=== PATIENT | male | born 1970 | race Caucasian/White ===

== ENCOUNTER 2022-05-28 14:50 | Outpatient (CLI) | payer OTHER, SELFPAY ==
[2022-05-28 21:32] LABS: Chloride* 100 mmol/L (96-114)
[2022-05-28 21:33] LABS: Potassium* 4.8 mmol/L (3.6-5.1); Sodium* 138 mmol/L (135-149)
[2022-05-28 21:36] LABS: Blood Urea Nitrogen* 18 mg/dL (7-30); Carbon Dioxide* 27 mmol/L (20-32); Cholesterol* 228 mg/dL (90-199); Creatinine* 1.1 mg/dL (0.5-1.5); Estimated Glomerular Filt Rate 82 ml/min; Glucose* 104 mg/dL (60-115); Triglycerides* 143 mg/dL (40-149)
[2022-05-28 21:37] LABS: Calcium* 9.9 mg/dL (8.4-10.6); HDL Cholesterol* 36 mg/dL (>=40); LDL Cholesterol Calculated 163 mg/dL (<100)
[2022-05-28 22:02] LABS: PSA Screen* 2.58 ng/mL (0.10-4.00)
[2022-05-29 15:15] LABS: Alanine Aminotransferase* 48 U/L (4-50)
== END 2022-05-28 14:51 | disposition home or self-care (01) ==
PROVIDERS: PCP Family Medicine; Visit Provider Family Medicine
DX: Z00.00 Encounter for general adult medical examination without abnormal findings (principal); G47.30 Sleep apnea, unspecified; F41.9 Anxiety disorder, unspecified; Z12.5 Encounter for screening for malignant neoplasm of prostate; Z13.6 Encounter for screening for cardiovascular disorders
CPT/HCPCS: 80048; 80061; 84153; 84460

== ENCOUNTER 2022-11-08 11:23 | Emergency (ER) | payer BC, SELFPAY ==
[2022-11-08 11:30] VITALS: BP 144/79; PULSE 103; RESP 18; TEMP 36.9; O2SAT 93; BMI 33.1
--- NOTE | 2022-11-08 11:34 | ED_ITS ---
HPI - Nausea/Vomiting/Diarrhea General Time Seen by Provider: 11:34 Date Seen: 11/08/22 Chief complaint: Nausea/Vomiting Stated complaint: Possible food poisoning vomiting diarrhea Time Seen by Provider: 11/08/22 11:29 Source: patient and RN notes reviewed Mode of arrival: ambulatory Limitations: no limitations History of Present Illness HPI Narrative: Patient is a 52-year-old male that woke at 2:00 a.m. with acute nausea vomiting and diarrhea. He and his did go out to eat last night. He is sicker than she is. Has abdominal cramping before stooling or vomiting but overall no abdominal pain. He thinks he may have felt a little warm and sweaty last night, possible fever but temperature not checked. He has not been able to keep anything down, take anything in since this started. He is not sure if it is food poisoning. What he ate last night, he gave his a little bit of. He also understands it could be a contagious illness that he picked up like gastroenteritis. He states he has had norovirus before and this feels like norovirus. No blood in the vomitus or stool/diarrhea. MD elicited complaint: nausea, vomiting and diarrhea Related Data Previous Rx's Medication Instructions Recorded rosuvastatin 10 mg tablet 10 mg PO QDAY #90 tabs 06/08/22 ondansetron 4 mg disintegrating 4 mg PO Q8H PRN nausea and 11/08/22 tablet vomiting #20 tabs Allergies Allergy/AdvReac Type Severity Reaction Status Date / Time No Known Drug Allergies Allergy Verified 05/28/22 14:30 Review of Systems Status of ROS: Reports: 6 or more systems reviewed and unremarkable except as noted in History and below [facility] Medical History (Updated 11/08/22 @ 12:59 by Angelika Fritz MD) History of pilonidal cyst ?Z87.2 - Personal history of diseases of the skin and subcutaneous tissue (ICD-10) Pilonidal cyst ?L05.91 - Pilonidal cyst without abscess (ICD-10) Family History (Updated 05/26/22 @ 15:23 by Niki Luo) Father Alcohol dependence Aortic aneurysm CVD (cardiovascular disease) Brother Alcohol dependence Maternal Grandfather CVD (cardiovascular disease) Maternal Grandfather CVD (cardiovascular disease) Social History (Updated 05/26/22 @ 15:23 by Niki Luo) Narrative: exercises regularly, had 4 children, , nonsmoker Smoking Status: Never smoker Exam Const: Vital Signs, click to edit/add: Vital Signs - 24 hr 11/08/22 11:30 Temperature 98.4 F Pulse Rate [Right Pulse Oximeter] 103 H Respiratory Rate 18 Blood Pressure [Ri ght Upper Arm] 144/79 H Pulse Oximetry 93 Oxygen Delivery Me thod Room Air Patient lying on the ER cart, holding an emesis bag. Documenting provider has reviewed patient's vital signs: yes Common normals: no apparent distress, average body habitus, oriented x3, no limitations, healthy appearing and alert General appearance: cooperative, comfortable, well kempt and well developed HENMT: Common normals: normocephalic, head/scalp atraumatic and hearing grossly normal bilaterally Head and scalp: normocephalic and atraumatic Other: Tongue and oral mucosa are dry. Lips look normal. No oral lesions noted. Eye: Common normals: PERRL, EOMs intact bilaterally, conjunctivae normal and no scleral icterus Conjunctiva: conjunctiva(e) normal Pupil: PERRL Neck & C-Spine: Common normals: full ROM, no lymphadenopathy and supple Resp: Common normals: normal respiratory effort, no retractions, no use of accessory muscles and clear to auscultation bilaterally Auscultation: clear to auscultation bilaterally Cardio: Common normals: regular rhythm, S1 normal heart sound, S2 normal heart sound, no gallops, no clicks and no murmurs Rate: tachycardic Rhythm: regular rhythm Heart sounds: S1 normal and S2 normal GI: Common normals: soft to palpation, non-tender, no hepatosplenomegaly and no masses Inspection: normal to inspection Auscultation: hypoactive bowel sounds Palpation: soft and no hepatosplenomegaly Neuro: Common normals: oriented x3 Sensorium/orientation: alert Psych: Appearance: well kempt Course Course Hospital Course: Patient and I reviewed differential diagnosis which does include food poisoning versus a viral gastroenteritis. We reviewed that most food poisoning is self- limited, do not treat at the onset of it. Obviously if this is a gastroenteritis such as a norovirus illness, he can anticipate a more prolonged illness. Food poisoning usually settles down within hours of the onset, typically does not have a lengthy illness. We will initiate IV fluids, IV Zofran. I will send him in a prescription for Zofran at home to help him try to get fluids in through this. We will do basic blood work. Would not recommend stool studies at this point. Reevaluation(s) Reevaluation #1: Patient is feeling better, declines a 2 L of IV fluids. We will discharge to home for ongoing conservative management. His had eaten 1 of his shrimp last night, she had just had a little cramping this morning. We discussed the difference between food poisoning and viral gastroenteritis. She was wondering if there is any waited test as they have a son at home with ulcerative colitis. Reviewed with her that our testing send out, we would maybe known in 5-7 days if we collected stool. Thus, I think following good hygiene, maybe having separate bathrooms at home through this might be beneficial. Time: 12:54 Vital Signs Vital signs: Initial Vital Signs Temperature 98.4 F 11/08/22 11:30 Temperature Source Temporal Artery Scan 11/08/22 11:30 Pulse Rate 103 H 11/08/22 11:30 Respiratory Rate 18 11/08/22 11:30 Blood Pressure 144/79 H 11/08/22 11:30 Blood Pressure Mean 100 11/08/22 11:30 Blood Pressure Position Sitting 11/08/22 11:30 Pulse Oximetry 93 11/08/22 11:30 Oxygen Delivery Method Room Air 11/08/22 11:30 Vital Signs Temperature 98.4 F 11/08/22 11:30 Pulse Rate 103 H 11/08/22 11:30 Respiratory Rate 18 11/08/22 11:30 Blood Pressure 144/79 H 11/08/22 11:30 Pulse Oximetry 93 11/08/22 11:30 Oxygen Delivery Method Room Air 11/08/22 11:30 Temperature 98.4 F 11/08/22 11:30 Pulse Rate 103 H 11/08/22 11:30 Respiratory Rate 18 11/08/22 11:30 Blood Pressure 144/79 H 11/08/22 11:30 Pulse Oximetry 93 11/08/22 11:30 Oxygen Delivery Method Room Air 11/08/22 11:30 MDM - Nausea/Vomiting/Diarrhea Lab Data Attestation: I reviewed the patient's lab results. Lab results narrative: Did review with patient that his glucose was elevated. This certainly could be a stress response but would warrant follow-up. His wanted to know if we would do hemoglobin A1c. Reviewed with her that I will defer that to the clinic. He is going to discharge, it is not imperative for her treatment at this time and is not something I am going to follow treatment for. Thus, recommend recheck within the next month in clinic. Labs: Lab Results 11/08/22 Range/Units 11:57 WBC 10.57 (4.50-11.00) K/uL RBC 5.00 (4.30-5.90) m/uL Hgb 15.8 (13.5-17.5) gm/dL Hct 46.4 (37.0-53.0) % MCV 93 (80-100) fL MCH 32 (26-34) pg MCHC 34 (32-36) gm/dL RDW Coeff of Wes 11.8 (11.5-15.5) % Plt Count 255 (140-440) K/uL Neut % (Auto) 91.5 H (42.0-72.0) % Lymph % (Auto) 4.2 L (20-44) % Harlan % (Auto) 3.9 (0.0-11.0) % Eos % (Auto) 0.1 (0.0-7.0) % Baso % (Auto) 0.1 (0.0-3.0) % Neut # (Auto) 9.70 H (1.7-7.0) K/uL Lymph # (Auto) 0.40 L (0.90-2.90) K/uL Harlan # (Auto) 0.40 (0.00-0.90) K/UL Eos # (Auto) 0.01 (0.00-0.50) K/uL Baso # (Auto) 0.01 (0.00-0.30) K/uL Sodium 138 (135-149) mmol/L Potassium 4.0 (3.6-5.1) mmol/L Chloride 106 (96-114) mmol/L Carbon Dioxide 23 (20-32) mmol/L BUN 21 (7-30) mg/dL Creatinine 1.1 (0.5-1.5) mg/dL Estimated Creat Clear 96.02 Estimated GFR 82 ml/min Glucose 144 H (60-115) mg/dL Lactate 1.7 (0.5-1.9) mmol/L Calcium 8.5 (8.4-10.6) mg/dL Discharge Plan Discharge Clinical Impression: Nausea, vomiting and diarrhea Patient Disposition: Home, Self-Care Condition: Improved Instructions: Acute Nausea and Vomiting (ED), Acute Diarrhea (ED), Nutrition Tips for Relief of Diarrhea (ED) Additional Instructions: Take Zofran as needed for any return of nausea vomiting. This should allow you to support clear liquids to stay hydrated. Follow the handout for nutrition tips on relief of diarrhea, may advance her diet as your nausea and vomiting improves. If you notice a blood in the stool, are not improving in the next 24- 48 hours, feel you are worsening at any point, do recommend re-evaluation. Do recommend recheck in clinic within the next month for recheck of a fasting glucose and possibly a hemoglobin A1c. Glucose was mildly elevated here today at 144. Prescriptions: New ondansetron 4 mg tablet,disintegrating 4 mg PO Q8H PRN (Reason: nausea and vomiting) Qty: 20 0RF No Action rosuvastatin 10 mg tablet 10 mg PO QDAY Qty: 90 1RF Follow Up/Referrals: Bobby Sutherland MD [Primary Care Provider] - Stand Alone Forms: [employer] Info Instructions Critical Care Time Critical Care Time Critical Care Time: No
[2022-11-08] MEDS: 0.9 % SODIUM CHLORIDE 1000 ml 1,000 ML IV (11:58)
[2022-11-08] MEDS: ONDANSETRON 2 MG/ML inj 4 MG IVP (11:58)
[2022-11-08 12:01] LABS: Lactate* 1.7 mmol/L (0.5-1.9)
[2022-11-08 12:03] LABS: Basophils Absolute Auto 0.01 K/uL (0.00-0.30); Basophils Percent Auto 0.1 % (0.0-3.0); Eosinophils Absolute Auto 0.01 K/uL (0.00-0.50); Eosinophils Percent Auto 0.1 % (0.0-7.0); Hematocrit 46.4 % (37.0-53.0); Hemoglobin* 15.8 gm/dL (13.5-17.5); Immature Granulocytes Abs Auto 0.02 K/uL (0.00-0.30); Immature Granulocytes Pct Auto 0.2 %; Lymphocytes Percent Auto 4.2 % (20-44); Mean Corpuscular HGB Conc 34 gm/dL (32-36); Mean Corpuscular Hemoglobin 32 pg (26-34); Mean Corpuscular Volume 93 fL (80-100); Monocytes Percent Auto 3.9 % (0.0-11.0); Neutrophils Percent Auto 91.5 % (42.0-72.0); Platelet Count* 255 K/uL (140-440); RDW Coefficient of Variation % 11.8 % (11.5-15.5); Slide Review Reflex No; White Blood Count* 10.57 K/uL (4.50-11.00)
[2022-11-08 12:17] LABS: Chloride* 106 mmol/L (96-114); Sodium* 138 mmol/L (135-149)
--- OUTSIDE RECORDS SUMMARY | 2022-11-08 12:17 | XMS_ITS | Continuity of Care Document ---
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 Operator Name Role Phone May Serrano CRNA Unavailable Unavai lable Allergies, Adverse Reactions, Alerts Substance Reaction Status Criticality No Known Allergies Active No Inform ation Medications Medication Instructions Dosage Effective Dates (start - stop) Status Comments rosuvastatin 10 mg tablet take 1 tablet by oral route every day 10 MG - Active Procedures Procedure Date Colonoscopy Flex; W/remov Les- Level Iv-surg Path Gross/micro Advance Directives Directive Yes / No Effective Date File Name No Information Encounters Encounter Description Practice Location Reason(s) For Visit Diagnoses Date Provider Providers Copied on Encounter [facility], [address] [address], [place], [place], [id number], [place] tel:[phone] [facility] No Information 3 Maggie Olvera. [address] [place] [address], [facility] [address], [place], [place], [address], [place]. tel:[phone] Referring Provider: Sha Avery MD S, [address] [facility] [address], [place], [address] . tel:[phone] [facility], [address] [address], [place], [place], [address], [place] tel:[phone] [facility] GI Symptoms or Concerns (chief complaint) Colorectal polypsDiverticulo sis of colon without diverticulitisEnc ounter for screening for malignant neoplasm of colonBenign neoplasm of ascending colonBenign neoplasm of sigmoid colonBenign neoplasm of rectumBenign neoplasm of sigmoid colonBenign neoplasm of ascending colon 3 Bennie Dalton. [address] [facility], [place] [address], [place], [place], [id number], [place]. tel:[phone] Bobby Sutherland MD. tel:[phone] erring Provider: Referral Self. [facility], [address] [address], [place], [place], [address], [place] tel:[phone] [facility] No Information 2 Ulises Ibarra. [address] [facility] [address], [place], [address], [place]. tel:[phone] Family History Family Member Type Diagnosis Age At Onset Son Problem (finding) Family history of Ulcer ative colitis Immunizations Vaccine Date Status Comments Seasonal, quadrivalent, recombinant, injectable influenza vaccine, preservative free administered Note: [facility] bi-direct ional interface ; Source: Other Registry SARS-COV-2 (COVID-19) vaccin e, mRNA, spike protein, LNP, preservative free, 30 mcg/0.3mL dose administered Note: [facility] bi-direct ional interface ; Source: Other Registry Afluria Qd administered Note: [facility] bi-directional interface ; Source: Other Registry SARS-COV-2 (COVID-19) vaccin e, vector non-replicating, recombinant spike protein-Ad26, preservative free, 0.5 mL administered Note: [facility] bi- directional interface ; Source: Other Registry Afluria Qd administered Note: [facility] bi-directional interface ; Source: Other Registry Seasonal, quadrivalent, recombinant, injectable influenza vaccine, preservative free administered Note: [facility] bi-direct ional interface ; Source: Other Registry Afluria Qd administered Note: [facility] bi-directional interface ; Source: Other Registry Influenza, seasonal, injectable administe red Note: [facility] bi- directional interface ; Source: Other Registry tetanus toxoid, reduced diphtheria toxoid, and acellular pertussis vaccine, adsorbed administered Note: [facility] b i-directional interface ; Source: Other Registry measles, mumps and rubella v irus vaccine administered Note: [facility] bi-direct ional interface ; Source: Other Registry measles virus vaccine administered Note: [facility] bi-directional interface ; Source: Other Registry Payers Payer name Insurance type Covered alliance party ID Authoriza tion(s) No Information Social History Type Description Quantity Date Captured Comments Sex Male Smoking Status No Information Chief Complaint And Reason For Visit No Information Reason For Referral Reason For Referral No Information Plan Of Treatment Date Type Action Status No Information History Of Present Illness Encounter Date Complaint History Of Prese nt Illness GI Symptoms or Concerns Functional Status Date Functional Assessmen t No Information Instructions Date Instruction Additional Infor mara Colon Cancer Prevention Related to Colorectal polyps Diverticulosis/Diverticulitis Re lated to Colorectal polyps Colon Polyps Related to Color ectal polyps High Fiber Diet Related to Color ectal polyps Assessments Type Assessment Date No Information Patient Care Teams Name Effective Dates (start - stop) Status Members No Information
--- OUTSIDE RECORDS SUMMARY | 2022-11-08 12:17 | XMS_ITS | Continuity of Care Document ---
Author Name Unknown Organization [facility] Address [address] [address] [place] [address] Phone Care Team Providers Care Size Worker Name Role Phone May Serrano CRNA Unavailable [...] Diagnoses Date Provider Providers Copied on Encounter [facility], [address] [address], [place], [place], [address], [place] tel:[phone] [facility] No Information 3 Maggie Olvera. [address] [place] [address], [facility] [address], [place], [place], [id number], [place]. tel:[phone] Referring Provider: Sha Avery MD S, [address] [facility] [address], [place], [address] . tel:[phone] [facility], [address] [address], [place], [place], [address], [place] tel:[phone] [facility] GI Symptoms or Concerns (chief complaint) Colorectal polypsDiverticulo sis of colon without diverticulitisEnc ounter for screening for malignant neoplasm of colonBenign neoplasm of ascending colonBenign neoplasm of sigmoid colonBenign neoplasm of rectumBenign neoplasm of sigmoid colonBenign neoplasm of ascending colon 3 Bennie Dalton. [address] [facility], [place] [address], [place], [place], [address], [place]. tel:[phone] Bobby Sutherland MD. tel:[phone] erring Provider: Referral Self. [facility], [address] [address], [place], [place], [address], [place] tel:[phone] [facility] No Information 2 Ulises Ibarra. [address] [facility] [address], [place], [address], [place]. tel:[phone] Family History Family Member Type Diagnosis Age [...] Registry Influenza, seasonal, injectable administe red Note: [facility] bi- directional interface ; Source: Other Registry tetanus toxoid, reduced diphtheria toxoid, and acellular pertussis vaccine, adsorbed administered Note: [facility] b i-directional interface ; Source: Other Registry measles, mumps and rubella v irus vaccine administered Note: [facility] bi-direct ional interface ; Source: Other Registry measles virus vaccine administered Note: [facility] bi-directional interface ; Source: Other Registry Payers Payer name Insurance type Covered green party ID Authoriza tion(s) No Information Social [...]
[2022-11-08 12:20] LABS: Blood Urea Nitrogen* 21 mg/dL (7-30); Carbon Dioxide* 23 mmol/L (20-32); Creatinine* 1.1 mg/dL (0.5-1.5); Est. Creatinine Clearance* 96.02; Estimated Glomerular Filt Rate 82 ml/min
[2022-11-08 12:21] LABS: Calcium* 8.5 mg/dL (8.4-10.6); Glucose* 144 mg/dL (60-115)
--- NOTE | 2022-11-08 13:21 | ED.NURSE ---
Zofran was sent to [facility] in [place] ([facility]) and cancelled at [facility] pharmacy per patient's request.
== END 2022-11-08 13:20 | disposition home or self-care (01) ==
PROVIDERS: Emergency Provider Family Medicine; PCP Family Medicine
DX: R11.2 Nausea with vomiting, unspecified (principal); R19.7 Diarrhea, unspecified
CPT/HCPCS: 36415; 80048; 83605; 85025; 96374; 99284; J2405; J7030

== ENCOUNTER 2024-01-24 19:20 | Outpatient (CLI) | payer BC, SELFPAY ==
--- NOTE | 2024-02-02 12:02 | W.PM.SLEEP ---
Sleep Study Details Details Interpreting Provider: Current Date of Sleep Study: 01/24/24 Sleep Study Details: STUDY TYPE:? Home unattended ? BMI:? 32.5 ORDERING PROVIDER:? Becki INDICATION:? Concerns about sleep apnea ? SLEEP SUMMARY:? 430 minutes monitored RESPIRATORY SUMMARY:? AHI 3.2, low oxygen 81, 2.4% of study oxygen less than 90%, snoring 78% PERIODIC LIMB MOVEMENTS OF SLEEP:? Not recorded CARDIAC:? Range 52-99, mean 67.3 beats per minute IMPRESSION:? Primary snoring RECOMMENDATION: If sleep disorder strongly suspected recommend in-lab study.
== END 2024-01-24 19:21 | disposition home or self-care (01) ==
LOC: SLEEP 19:21
PROVIDERS: PCP Family Medicine; Visit Provider Otolaryngology
DX: R06.83 Snoring (principal)
CPT/HCPCS: 95806

== ENCOUNTER 2024-03-03 09:38 | Outpatient (CLI) | payer BC, SELFPAY ==
--- OUTSIDE RECORDS SUMMARY | 2024-03-06 15:04 | XMS_ITS | Clinical Summary ---
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 Name Role Phone No Ref-Primary, Physician Primary Care Provider Allergies No known active allergies Medications No known medications Immunizations Name Administration Dates Next Due Influenza Vaccine 18-64 (Flublok) 09/21/2019 Influenza Vaccine >6 months,quad, PF 05/30/2020 Measles 03/28/1990 TDAP (Adacel,Boostrix) 04/17/2009 Td (Adult), Adsorbed 09/21/2019 Social History Tobacco Use Types Packs/Day Years Used Date Smoking Tobacco: Never Smokeless Tobacco: Never Adolescent Education Answer Date Record ed Getting School Help Needed Not on file 05/23 Sex and Gender Information Value Date Recorded Sex Assigned at Not on file Gender Identity Not on file Sexual Orientation Not on file Last Filed Vital Signs Vital Sign Reading Time Taken Comments Blood Pressure 133/78 06/24/2023 1:18 PM DIALYSIS TECH Pulse 85 06/24/2023 1:18 PM DIALYSIS TECH Temperature 37.6 ??C (99.6 ??F) 07/26/2018 7:51 PM CS T Respiratory Rate 16 07/26/2018 7:51 PM DIALYSIS TECH Oxygen Saturation 97% 06/24/2023 1:18 PM DIALYSIS TECH Inhaled Oxygen Concentration - - Weight 117.9 kg (260 lb) 07/26/2018 7:51 PM DIALYSIS TECH Height - - Body Mass Index - - Plan of Treatment Health Maintenance Due Date Last Done Comments ADVANCE CARE PLANNING 1972 ANNUAL REVIEW OF HM ORDERS 1972 CT COLONOGRAPHY 1972 FIT 1972 FLEX SIG 1972 GLUCOSE 1972 sDNA (Cologuard) 1972 HIV SCREENING 02/06/1987 HEPATITIS C SCREENING 02/06/1990 HEPATITIS B IMMUNIZATION (1 of 3 - 19+ 3-dose series) 02/06/1991 LIPID 2012 YEARLY PREVENTIVE VISIT 09/21/2020 09/21/2019 ZOSTER IMMUNIZATION (1 of 2) 02/06/2022 COVID-19 Vaccine (3 - season) 2023 06/06/2021, 11/21/2020 PHQ-2 (once per calendar year) 2023 INFLUENZA VACCINE (#1) 2024 2, 06/06/2021, 05/30/2020, Additional history exists DTAP/TDAP/TD IMMUNIZATION (3 - Td or Tdap) 09/21/2029 09/21/2019, 04/17/2009, 11/21/2004 COLONOSCOPY 09/02/2032 09/02/2022 COLORECTAL CANCER SCREENING 09/02/2032 HPV IMMUNIZATION Aged Out No longer e ligible based on patient's age to complete this topic IPV IMMUNIZATION Aged Out No longer e ligible based on patient's age to complete this topic MENINGITIS IMMUNIZATION Aged Out No l onger eligible based on patient's age to complete this topic Pneumococcal Vaccine: Pediatrics (0 to 5 Years) and At-Risk Patients (6 to 64 Years) Aged Out No longer eligible based on patient's age to complete this topic RSV MONOCLONAL ANTIBODY Aged Out No l onger eligible based on patient's age to complete this topic Care Teams Pipe Manufacture Supervisor Relationship Specialty Start Date End Date No Ref-Primary, Physician PCP - General 07/26/18
--- OUTSIDE RECORDS SUMMARY | 2024-03-06 15:04 | XMS_ITS | Referral Summary ---
Author Organization [facility] Address [address] [place] [address] Care Team Providers Care Livestock Producer Name Role Phone No Ref-Primary, Physician Primary [...] Comments Blood Pressure 133/78 06/24/2023 1:18 PM PARTS SALESPERSON Pulse 85 06/24/2023 1:18 PM PARTS SALESPERSON Temperature 37.6 ??C (99.6 ??F) 07/26/2018 7:51 PM CS T Respiratory Rate 16 07/26/2018 7:51 PM PARTS SALESPERSON Oxygen Saturation 97% 06/24/2023 1:18 PM PARTS SALESPERSON Inhaled Oxygen Concentration - - Weight 117.9 kg (260 lb) 07/26/2018 7:51 PM PARTS SALESPERSON Height - - Body Mass Index - - Plan of Treatment Not on file Care Teams Livestock Producer Relationship Specialty Start Date End Date No Ref-Primary, Physician PCP - General 07/26/18
--- OUTSIDE RECORDS SUMMARY | 2024-03-06 15:05 | XMS_ITS | Clinical Summary ---
Author Organization [facility] Address [place], [place] [address] Care Team Providers Care Principal Technologist Name Role Phone Aj Lovett MD Primary Care Provider [phone] Allergies No known active allergies Medications Medication Sig Dispensed Refills Start Date End Date Status ondansetron (ZOFRAN ODT) 4 mg disintegrating tabletIndications:Vomit ing Place 1 tablet on the tongue every 8 hours if needed for Nausea/Vomiting . 30 tablet 0 11/12/2014 Active multivitamin-folic acid 0.4 mg (MEN'S MULTI-VITAMIN) tablet Take 1 tablet by mouth once daily. 0 12/13/2014 Active codeine-guaiFENesin (ROBITUSSIN AC) 10-100 mg/5 mL liquidIndications:Flu syndrome,Cough,Influenz a B Take 10 mL by mouth every 4 hours if needed for Cough. Max dose 60 mL per 24 hrs. 240 mL 1 12/13/2014 Active Active Problems Problem Noted Date Diagnosed Date Unspecified sleep apnea 07/13/2012 Lateral epicondylitis of right elbow 07/13/2012 Pure hypercholesterolemia 12/02/2006 Allergic rhinitis due to pollen 12/02/2006 Immunizations Name Administration Dates Next Due Influenza, IIV3 (Age >=3 years) 10/01/2010 Td (Age >=7 Years) 11/21/2004 Tdap 04/17/2009 Family History Medical History Relation Name Comments Allergies Brother 2 Second Allergies Brother 3 Third Good Health Daughter 2 Second Good Health Daughter 3 Third Heart Disease Father [place] 12/2008, AA A Heart Disease Maternal Grandfather Other Maternal Grandmother Macular Degeneration Unknown Maternal Grandmother Good Health Mother Other Mother Macular Degener ation Heart Disease Paternal Grandfather Unknown Paternal Grandmother Allergies Sister 2 Oldest Good Health Son 2 Older Relation Name Status Comments Brother 1 Alive X2 Brother 2 Brother 3 Daughter 1 Alive Daughter 2 Daughter 3 Father Alive Maternal Grandfather Maternal Grandmother Mother Alive Paternal Grandfather Paternal Grandmother Sister 1 Alive Sister 2 Son 1 Alive Son 2 Social History Tobacco Use Types Packs/Day Years Used Date Smoking Tobacco: Never Smokeless Tobacco: Never Alcohol Use Standard Drinks/Week Comments Yes 0.8 (1 standard drink = 0.6 oz p ure alcohol) Social, no binges Sex and Gender Information Value Date Recorded Sex Assigned at Not on file Gender Identity Not on file Sexual Orientation Not on file Obstetrics History Last Filed Vital Signs Vital Sign Reading Time Taken Comments Blood Pressure 112/78 12/13/2014 1:18 PM CDT Pulse 100 12/13/2014 1:18 PM CDT Temperature 38.7 ??C (101.6 ??F) 12/13/2014 1:18 PM C DT Respiratory Rate 20 12/13/2014 1:18 PM CDT Oxygen Saturation 96% 11/21/2011 1:29 PM CDT Inhaled Oxygen Concentration - - Weight 115.4 kg (254 lb 8 oz) 12/13/2014 1:18 PM CDT Height 188 cm (6' 2) 12/13/2014 1:18 PM CDT Body Mass Index 32.68 12/13/2014 1:18 PM CDT Plan of Treatment Health Maintenance Due Date Last Done Comments Depression screening for age 12+ 1984 HIV for age 15-65 02/06/1987 BMI (ht and wt on same day) for age 18+ 02/06/1990 Hepatitis C screening for age 18-79 02/06/1990 Colonoscopy through age 75 02/06/2017 Lipids for age 45-75 02/06/2017 10/01/2010, 04/17/2009, 10/07/2007, Additional history exists Tetanus booster 04/17/2019 04/17/2009, 11/21/2004 Zoster (shingles) series for age 50+ (1 of 2) 02/06/2022 COVID-19 vaccine series (2022-24 season) 2023 Influenza for age 50-64 04/16/2024 10/01/2010 Tdap Completed 04/17/2009 Pneumococcal series for age 6-64 Aged Out No longer eligible based on patient's age to complete this topic Procedures Procedure Name Priority Date/Time Associated Diagnosis Comments LIPID PANEL W REFLEX MEASURED LDL Routine 10/01/2010 10:49 AM POLE SHAVER HYPERCHOLESTEROLEMI A from Last 3 Months or Most Recently Relevant to Health Maintenance Results * (ABNORMAL) LIPID PANEL W REFLEX MEASURED LDL (10/01/2010 10:49 AM POLE SHAVER) CHOLESTEROL,TOTAL 226(H) 110 - 199 mg/dL [facility] TRIGLYCERIDES 117 40 - 149 mg/dL [facility] HDL CHOLESTEROL 40(L) >40 mg/dL [facility] CHOL/HDL RATIO 5.65(H) <4.51 [facility] LDL CHOLESTEROL 163(H) <131 mg/dL [facility] PATIENT STATUS Fasting [facility] Blood specimen (specimen) BLOOD SPECIMEN / Unknown 10/01/2010 10:49 AM POLE SHAVER 10/01/2010 10:42 AM POLE SHAVER Aj Lovett MD CHEMISTRY [facility] INTERNAL ZIP [id number] [place] [id number] from Last 3 Months or Most Recently Relevant to Health Maintenance Care Teams Principal Technologist Relationship Specialty Start Date End Date Aj Lovett MD [address] [place] [address] PCP - General 10/07/07
--- OUTSIDE RECORDS SUMMARY | 2024-03-06 15:05 | XMS_ITS | Clinical Summary ---
Author Organization [facility] Address [address] [place] [address] Care Team Providers Care Panel Saw Operator Name Role Phone Vianney Wang MD Primary Care Provider [phone] Source Comments You are receiving this document as you are listed as the primary care provider,follow-up provider, or the patient has been referred to you for consultation.This is in compliance with the Medicare and[facility] EHR Incentive Program,which states Providers who transition their patient to another setting of careor provider of care or refers their patient to another provider of care shouldprovide summary care record for each transition of care or referral. [facility] [employer] [facility] Allergies No known active allergies Medications Medication Sig Dispensed Refills Start Date End Date Status predniSONE (DELTASONE) 20 MG tablet Take 20 mg by mouth two times a day. Active amoxicillin-clavulanate (AUGMENTIN) 875-125 mg per tablet Take 1 Tab by mouth two times a day. Active ondansetron (ZOFRAN-ODT) 8 MG disintegrating tablet Take 1 Tab by mouth every 8 hours as needed for Nausea. 10 Tab 09/01/2017 Active Active Problems No known active problems Immunizations Name Administration Dates Next Due Measles 03/28/1990 Social History Tobacco Use Types Packs/Day Years Used Date Smoking Tobacco: Never Smokeless Tobacco: Never Sex and Gender Information Value Date Recorded Sex Assigned at Not on file Gender Identity Not on file Sexual Orientation Not on file Last Filed Vital Signs Vital Sign Reading Time Taken Comments Blood Pressure 114/64 09/01/2017 11:13 AM CABLE TESTER Pulse 76 09/01/2017 11:13 AM CABLE TESTER Temperature 37.2 ??C (99 ??F) 09/01/2017 9:53 AM CABLE TESTER Respiratory Rate 20 09/01/2017 11:13 AM CABLE TESTER Oxygen Saturation 100% 09/01/2017 9:53 AM CABLE TESTER Inhaled Oxygen Concentration - - Weight 117 kg (258 lb) 11/03/2016 8:34 AM CDT Height - - Body Mass Index - - Plan of Treatment Health Maintenance Due Date Last Done Comments Colon Cancer Screening Plan Due 1972 Hep C Screening (Preventive Services) 1972 PSA Screening Discussion 1972 HIV Screening (Preventive Services) 1988 Adult Preventive Visit 02/06/1990 DTaP/Tdap/Td (1 - Tdap) 02/06/1991 HepB (1) 02/06/1991 Cholesterol 02/06/2007 Zoster/Shingles (1 of 2) 02/06/2022 COVID-19 Vaccine (1 - 2022-2 4 season) 2023 Influenza (#1) 2024 HepA Aged Out No longer eligi ble based on patient's age to complete this topic Hib Aged Out No longer eligi ble based on patient's age to complete this topic IPV (Polio) Aged Out No longer eligi ble based on patient's age to complete this topic MCV4 Aged Out No longer eligi ble based on patient's age to complete this topic Pneumococcal Aged Out No longer eligi ble based on patient's age to complete this topic Care Teams Panel Saw Operator Relationship Specialty [place] [address] [place] [address] PCP - General Family Practice 11/03/16
== END 2024-03-03 09:39 | disposition home or self-care (01) ==
LOC: NFLDREF 03-06 15:03
PROVIDERS: PCP Family Medicine; Referring Provider Family Medicine; Visit Provider Family Medicine
DX: R73.9 Hyperglycemia, unspecified (principal); E78.00 Pure hypercholesterolemia, unspecified; Z12.5 Encounter for screening for malignant neoplasm of prostate
CPT/HCPCS: 80053; 80061; G0103

== ENCOUNTER 2024-07-17 19:33 | Outpatient (CLI) | payer BC, SELFPAY ==
--- OUTSIDE RECORDS SUMMARY | 2024-07-17 19:36 | XMS_ITS | Clinical Summary ---
Author Organization [facility] Address [address], [place] [address] Care Team Providers Care Corrugator Operator Name Role Phone Vianney Wang MD Primary Care Provider [phone] Source Comments You are receiving this document as you are listed as the primary care provider,follow-up provider, or the patient has been referred to you for consultation.This is in compliance with the Medicare and[facility] Health Systemcaid EHR Incentive Program,which states Providers who transition their patient to another setting of careor provider of care or refers their patient to another provider of care shouldprovide summary care record for each transition of care or referral. [facility] Allergies No known active allergies Medications Medication [...] Comments Blood Pressure 114/64 09/01/2017 11:13 AM PLANT HEALTH CARE TECHNICIAN Pulse 76 09/01/2017 11:13 AM PLANT HEALTH CARE TECHNICIAN Temperature 37.2 C (99 F) 09/01/2017 9:53 AM PLANT HEALTH CARE TECHNICIAN Respiratory Rate 20 09/01/2017 11:13 AM PLANT HEALTH CARE TECHNICIAN Oxygen Saturation 100% 09/01/2017 9:53 AM PLANT HEALTH CARE TECHNICIAN Inhaled Oxygen Concentration - - Weight 117 [...] of 2) 02/06/2022 COVID-19 Vaccine (1 - 2023-2 5 season) 2024 Influenza (#1) 2024 HepA Aged Out No longer eligi ble based on patient's age to complete this topic Hib Aged Out No longer eligi ble based on patient's age to complete this topic IPV (Polio) Aged Out No longer eligi ble based on patient's age to complete this topic Infant RSV Aged Out No longer eligi ble based on patient's age to complete this topic MCV4 Aged Out No longer eligi ble based on patient's age to complete this topic Pneumococcal Aged Out No longer eligi ble based on patient's age to complete this topic Care Teams Corrugator Operator Relationship Specialty [place] [address] [place] [address] PCP - General Family Practice 11/03/16
--- OUTSIDE RECORDS SUMMARY | 2024-07-17 19:36 | XMS_ITS | Clinical Summary ---
Author Organization [facility] Address [address] [place] [address] Care Team Providers Care Lead Pony Rider Name Role Phone No Ref-Primary, Physician Primary [...] Recorded Sex Assigned at Not on file Legal Sex Male 3:19 AM LOG DATA TECHNICIAN Gender Identity Not on file Sexual Orientation Not on file Last Filed Vital Signs Vital Sign Reading Time Taken Comments Blood Pressure 133/78 06/24/2023 1:18 PM LOG DATA TECHNICIAN Pulse 85 06/24/2023 1:18 PM LOG DATA TECHNICIAN Temperature 37.6 C (99.6 F) 07/26/2018 7:51 PM LOG DATA TECHNICIAN Respiratory Rate 16 07/26/2018 7:51 PM LOG DATA TECHNICIAN Oxygen Saturation 97% 06/24/2023 1:18 PM LOG DATA TECHNICIAN Inhaled Oxygen Concentration - - Weight 117.9 kg (260 lb) 07/26/2018 7:51 PM LOG DATA TECHNICIAN Height - - Body Mass Index - [...] 09/21/2019 ZOSTER IMMUNIZATION (1 of 2) 02/06/2022 PHQ-2 (once per calendar year) 2023 COVID-19 Vaccine (3 - 2023- season) 2024 06/06/2021, 11/21/2020 INFLUENZA VACCINE (#1) 2024 , 06/06/2021, 05/30/2020, Additional history exists DTAP/TDAP/TD IMMUNIZATION (3 - Td or Tdap) 09/21/2029 09/21/2019, 04/17/2009, 11/21/2004 COLONOSCOPY 09/02/2032 09/02/2022 COLORECTAL CANCER SCREENING 09/02/2032 RSV VACCINE (1 - 1-dose 75+ series) 02/06/2047 HPV IMMUNIZATION Aged Out No longer e [...] on patient's age to complete this topic Insurance [employer] [place] [facility] [place] Care Teams Lead Pony Rider Relationship Specialty Start Date End Date No Ref-Primary, Physician PCP - General 07/26/18
--- OUTSIDE RECORDS SUMMARY | 2024-07-17 19:36 | XMS_ITS | Clinical Summary ---
Author Organization [facility] Address [place], [place] [address] Care Team Providers Care Boatbuilder Supervisor Name Role Phone Aj Lovett MD Primary Care Provider [phone] Allergies No known active allergies Medications Medication [...] Health Daughter 3 Third Heart Disease Father [place] 12/2008, AA A Heart Disease Maternal Grandfather [...] 100 12/13/2014 1:18 PM CDT Temperature 38.7 C (101.6 F) 12/13/2014 1:18 PM CDT Respiratory Rate 20 12/13/2014 1:18 PM CDT [...] (1 of 2) 02/06/2022 COVID-19 vaccine series (2023-25 season) 2024 Influenza for age 50-64 04/16/2024 10/01/2010 Tdap Completed 04/17/2009 Pneumococcal series for age 6-64 Aged Out No longer eligible based on patient's age to complete this topic Procedures Procedure Name Priority Date/Time Associated Diagnosis Comments LIPID PANEL W REFLEX MEASURED LDL Routine 10/01/2010 10:49 AM GAS MAKER HELPER HYPERCHOLESTEROLEMI A from Last 3 Months or Most Recently Relevant to Health Maintenance Results * (ABNORMAL) LIPID PANEL W REFLEX MEASURED LDL (10/01/2010 10:49 AM GAS MAKER HELPER) CHOLESTEROL,TOTAL 226(H) 110 - 199 mg/dL [facility] TRIGLYCERIDES 117 40 - 149 mg/dL [facility] HDL CHOLESTEROL 40(L) >40 mg/dL [facility] CHOL/HDL RATIO 5.65(H) <4.51 [facility] LDL CHOLESTEROL 163(H) <131 mg/dL [facility] PATIENT STATUS Fasting [facility] Blood specimen (specimen) BLOOD SPECIMEN / Unknown 10/01/2010 10:49 AM GAS MAKER HELPER 10/01/2010 10:42 AM GAS MAKER HELPER Aj Lovett MD CHEMISTRY [facility] INTERNAL ZIP [id number] [place] [id number] from Last 3 Months or Most Recently Relevant to Health Maintenance Care Teams Boatbuilder Supervisor Relationship Specialty Start Date End Date Aj Lovett MD [address] [place] [address] PCP - General 10/07/07
--- OUTSIDE RECORDS SUMMARY | 2024-07-17 19:36 | XMS_ITS | Referral Summary ---
Author Organization [facility] Address [address] [place] [address] Care Team Providers Care Human Resources Communications Manager Name Role Phone No Ref-Primary, Physician Primary [...] on file Legal Sex Male 3:19 AM MARKET RESEARCH SENIOR PROJECT MANAGER Gender Identity Not on file Sexual Orientation Not on file Last Filed Vital Signs Vital Sign Reading Time Taken Comments Blood Pressure 133/78 06/24/2023 1:18 PM MARKET RESEARCH SENIOR PROJECT MANAGER Pulse 85 06/24/2023 1:18 PM MARKET RESEARCH SENIOR PROJECT MANAGER Temperature 37.6 C (99.6 F) 07/26/2018 7:51 PM MARKET RESEARCH SENIOR PROJECT MANAGER Respiratory Rate 16 07/26/2018 7:51 PM MARKET RESEARCH SENIOR PROJECT MANAGER Oxygen Saturation 97% 06/24/2023 1:18 PM MARKET RESEARCH SENIOR PROJECT MANAGER Inhaled Oxygen Concentration - - Weight 117.9 kg (260 lb) 07/26/2018 7:51 PM MARKET RESEARCH SENIOR PROJECT MANAGER Height - - Body Mass Index - - Plan of Treatment Not on file Insurance [employer] [place] [employer] [place] Care Teams Human Resources Communications Manager Relationship Specialty Start Date End Date No Ref-Primary, Physician PCP - General 07/26/18
--- NOTE | 2024-07-25 12:58 | W.PM.SLEEP ---
Sleep Study Details Details Interpreting Provider: Becki Date of Sleep Study: 07/17/24 Sleep Study Details: STUDY TYPE:? Home unattended ? BMI:? 34.5 ORDERING PROVIDER:? Becki INDICATION:? Concerns about sleep apnea ? SLEEP SUMMARY:? 408 minutes monitored RESPIRATORY SUMMARY:? AHI 7.9, supine 31.6, right lateral 7.2 Low oxygen 88 0.2% of study oxygen less than 90% Snoring 22% PERIODIC LIMB MOVEMENTS OF SLEEP:? Not recorded CARDIAC:? Range 52-93, mean 63 IMPRESSION:? Mild obstructive sleep apnea overall with severe apnea in the supine position RECOMMENDATION: Treatment options include CPAP dental appliance and/or airway expansion surgery.
== END 2024-07-17 19:34 | disposition home or self-care (01) ==
LOC: SLEEP 19:34
PROVIDERS: PCP Family Medicine; Visit Provider Otolaryngology
DX: G47.22 Circadian rhythm sleep disorder, advanced sleep phase type (principal)
CPT/HCPCS: 95806